=== PATIENT | male | born 1940 | race Caucasian/White ===

== ENCOUNTER 2021-06-07 11:56 | Emergency (ER) | payer MEDICARE ==
[~2021-06-07] VITALS: Ht 172.7 cm; Wt 72.0 kg
--- NOTE | 2021-06-07 12:02 | PHYS DOC ---
General Adult EDM: Chief Complaint: CHEST PAIN HPI: HPI: Patient is a 80-year-old male coming in for lightheadedness and chest pain starting about 1-1.5 hours prior to arrival. Patient states he was just finishing up the shower when the symptoms started. His he has minor right-sided chest pain. Had similar symptoms a few weeks ago. Patient denies any prior cardiac history. Patient says he might have been diaphoretic is not anymore. He states that he has a procedure planned at tomorrow. Denies any medical history other than "my stomach is bad" and 'my bowels are bad" has had both of those [place] vaccine (KRISTI PERSAUD MD) HPI: Patient comes into the ED complaining of lightheadedness upon standing for about 3 weeks but worse today, had been seen by the daytime physician earlier did complain of some chest pain at that point but denies it at this time to me. Denies any fever, chills, no blurred vision or vision loss, no focal numbness weakness/tingling face, arms or legs. No loss of bowel or bladder control, no k nown history of cardiac disease, no known history of strokes or thromboembolism (FRANCOIS MCGEE MD) Review of Systems: Review of Systems: All other systems within normal limits except for as noted in the HPI (KRISTI PERSAUD MD) Review of Systems: General: no fevers , no chills, no general weakness Eyes: no blurred vision, no diplopia Skin: no rashes Neck: no swelling, no neck stiffness, no neck pain Heme: no bleeding, no lymph node enlargement Ear/Nose/Throat: No sore throat, no runny nose, no hearing loss, no difficulty swallowing Cardiovascular: + Chest pain, no palpitations Respiratory: No dyspnea, no cough, no hemoptysis Gastrointestinal: No abdominal pain, no nausea, no vomiting, no diarrhea, no blood in stool Genitourinary: no dysuria, no hematuria Musculoskeletal: no back pain, no leg pain, no arm pain, no arthralgia Neurologic: no headaches, no dizziness, no focal numbness/tingling, no focal weakness Psych: no depression, no anxiety, no SI/HI *All review of systems are negative other than what is noted above (FRANCOIS MCGEE MD) Physical Exam: PE: Constitutional: Well developed, well nourished, no acute distress, non-toxic appearance. [] HENT: Normocephalic, atraumatic, bilateral external ears normal, nose normal. [] Eyes: PERRLA, conjunctiva normal, no discharge. [] Neck: No rigidity, supple, no stridor. [] Cardiovascular: Regular rate and rhythm, brisk cap refill [] Lungs & Thorax: Non labored symmetric respirations, no tachypnea or respiratory distress [] Abdomen: Soft, nondistended. Skin: Warm, dry, no erythema, no rash. [] Back: Unremarkable Extremities: No deformities, range of motion grossly intact, no lower extremity edema [] Neurologic: Alert and oriented X 3, no focal deficits noted. [] Psychologic: Affect normal, judgement normal, mood normal. [] (KRISTI PERSAUD MD) PE: Gen-well appearing, no acute distress Head: Normocephalic/Atraumatic ENT: atraumatic, PERRLA, EOMI, oropharynx clear Neck: supple, full ROM/strength, no JVD, no nuchal rigidity Lungs: no distress, speaks in full sentences, Clear to auscultation bilaterally CV: reg rate, rhythm, no murmus/rubs/gallops, peripheral pulses equal in all extremities Abdomen: soft/nontender, no guarding/rebound tenderness, no rigidity, non distended, normoactive bowel sounds Musculoskeletal: full ROM/strength in all extremities, atraumatic, no swelling Back: full range of motion/strength Skin: intact, no rashes Lymph: no gross CAROLE Neuro: alert and oriented x 4, CN 2-12 grossly intact, Motor strength is 5/5 in all extremities, no focal sensory deficits, no focal ataxia, ambulatory with steady gait Psych: normal mood/affect (FRANCOIS MCGEE MD) EKG: EKG: Sinus rhythm, heart rate 74 beats minute, left axis deviation, no ST elevation or depression, no ectopy. [] (KRISTI PERSAUD MD) EKG: Twelve-lead EKG was done on arrival and is normal sinus rhythm at a rate of 87 and this is a nonischemic appearing EKG with otherwise normal axis and intervals (FRANCOIS MCGEE MD) Radiology/Procedures: Radiology/Procedures: [place] [address] IMAGING REPORT Signed PATIENT: JARAD NUNN V ACCOUNT: [id number] : 1940 LOCATION: ER AGE: 80 SEX: M EXAM STATUS: REG ER ORD. PHYSICIAN: KRISTI PERSAUD MD REASON: chest pain, right PROCEDURE: CHEST PA & LATERAL XR CHEST 2V History: Chest pain, right. Comparison: 04/02/2014 Technique: PA and lateral chest radiographs. Findings: The lungs are adequately and symmectrically inflated. No airspace consolidation, pleural effusion or pneumothorax. The cardiomediastinal silhoutte and pulmonary vasculature are within normal limits. Flowing osteophytes in the thoracic spine. Impression: 1. No acute cardiopulmonary process. Electronically signed by: Francois Maradiaga MD (06/07/2021 3:06 PM) [id number] DICTATED AND SIGNED BY: FRANCOIS MARADIAGA MD DATE: 06/07/21 150 CC: KRISTI PERSAUD MD; MALOU RANDLE MD ~MTH0 0 [][address] [address] IMAGING REPORT Signed PATIENT: JARAD NUNN V ACCOUNT: [id number] : 1940 LOCATION: ER AGE: 80 SEX: M EXAM STATUS: REG ER ORD. PHYSICIAN: KRISTI PERSAUD MD REASON: near syncope PROCEDURE: CT HEAD WO CONTRAST EXAM: Head CT without contrast. HISTORY: Near syncope. TECHNIQUE: Computed tomographic images of the head were obtained without contrast. *One or more of the following individualized dose reduction techniques were utilized for this examination: 1. Automated exposure control. 2. Adjustment of the mA and/or kV according to patient size. 3. Use of iterative reconstruction technique. COMPARISON: None. FINDINGS: There is no acute or subacute extra-axial or intraparenchymal hemorrhage. There is no mass effect or midline shift. There is no hydrocephalus. There are areas of decreased attenuation within the cerebral white matter, nonspecific and likely related to chronic small vessel disease. There is mild cerebral volume loss. The visualized portions of the orbits, paranasal sinuses and mastoid air cells are unremarkable. No suspicious calvarial lesion is seen. There is benign osseous excrescence along the inner table of the left frontal bone. This exerts no mass effect on the adjacent brain parenchyma. IMPRESSION: 1. No acute intracranial finding. Note is made that MRI is more sensitive for acute infarction. 2. Bilateral cerebral white matter changes, likely due to chronic small vessel disease. Electronically signed by: Sheree Dudley MD (06/07/2021 4:29 PM) [id number] DICTATED AND SIGNED BY: SHEREE DUDLEY MD DATE: 06/07/21 1623 CC: KRISTI PERSAUD MD; MALOU RANDLE MD ~MTH0 0 (KRISTI PERSAUD MD) Heart Score: C/O Chest Pain: Yes HEART Score for Chest Pain: HEART Score for Chest Pain Response (Comments) Value History Slighlty/Non-Suspicious 0 ECG Normal 0 Age > 65 2 Risk Factors No Risk Factors 0 Troponin < Normal Limit 0 Total 2 Risk Factors: Risk Factors: DM, Current or recent (<one month) smoker, HTN, HLP, family history of CAD, obesity. Risk Scores: Score 0 - 3: 2.5% MACE over next 6 weeks - Discharge Home Score 4 - 6: 20.3% MACE over next 6 weeks - Admit for Clinical Observation Score 7 - 10: 72.7% MACE over next 6 weeks - Early Invasive Strategies (KRISTI PERSAUD MD) C/O Chest Pain: No (FRANCOIS MCGEE MD) Course & Med Decision Making: Course & Med Decision Making Pending remaining fluids and reevaluation at shift change. (KRISTI PERSAUD MD) Course & Med Decision Making 80-year-old male presented to the emergency department complaining initially of some lightheadedness/dizziness upon standing, patient is neurologically intact, no focal findings, pertinent differential diagnosis includes but not limited to dehydration, orthostasis, electrolyte imbalance, unlikely stroke, ACS, PE, dissection, unlikely any intracranial infections, plan is to get a work-up in the patient includes orthostatic vital signs, labs including cardiac biomarkers, chest x-ray, will hydrate the patient, will then reevaluate exam room in the visit work-up and determine the best course of action is a data becomes available 846pm: Head CT was negative, he was given a liter of IV fluid, he says that his symptoms now resolved completely, he is ambulatory steady gait and remains neurologically intact, I did offer the patient admission given his nonspecific symptoms although he declined and wished to go home although I did advise him to be admitted, in lieu of him being admitted I advised him to follow with his primary care doctor in the next 24 hours Patient was seen in the ED for lightheadedness/dizziness that improved in the emergency department and he is now asymptomatic, there is no apparent evidence of any emergency medical pathology at this time, patient was advised follow-up with their primary care provider /physician in the next 24 hours, and to return to the ED before then if any new or worsening / concerning symptoms had developed. All questions and concerns were addressed at time of disposition (FRANCOIS MCGEE MD) Dragon Disclaimer: Dragon Disclaimer: This electronic medical record was generated, in whole or in part, using a voice recognition dictation system. (KRISTI PERSAUD MD) Departure Departure: Impression: Primary Impression: Dizziness Disposition: 01 HOME / SELF CARE / HOMELESS Condition: IMPROVED Referrals: MALOU RANDLE MD (PCP) 24 hrs Patient Instructions: Dizziness Additional Instructions: I recommend that you see your primary care doctor in the next 24 hours, please return to the nearest emergency room before that if any new or worsening/concerning symptoms develop KRISTI PERSAUD MD Jun 07, 2021 12:02 FRANCOIS MCGEE MD Jun 07, 2021 20:47
[2021-06-07 12:41] LABS: BASO % 0 % (0-3); EOS % 0 % (0-3); HEMATOCRIT 46.8 % (39.0-53.0); HEMOGLOBIN 15.8 g/dL (13.0-17.5); LYMPH # 0.7 x10^3/uL (1.0-4.8); LYMPH % 14 % (24-48); MEAN CORPUSCULAR HEMOGLOBIN 31 pg (25-35); MEAN CORPUSCULAR HGB CONC 34 g/dL (31-37); MEAN CORPUSCULAR VOLUME 92 fL (79-100); MONO # 0.4 x10^3/uL (0.0-1.1); MONO % 8 % (0-9); NEUT # 3.9 x10^3uL (1.8-7.7); NEUT % 78 % (31-73); PLATELET COUNT 131 x10^3/uL (140-400); RED BLOOD COUNT 5.08 x10^6/uL (4.30-5.70); RED CELL DISTRIBUTION WIDTH 13.5 % (11.5-14.5)
[2021-06-07 12:48] LABS: CALCIUM 8.6 mg/dL (8.5-10.1); CREATININE 0.9 mg/dL (0.7-1.3); GFR 81.6; POTASSIUM 3.9 mmol/L (3.5-5.1)
[2021-06-07 13:02] LABS: ALBUMIN 3.7 g/dL (3.4-5.0); ALBUMIN/GLOBULIN RATIO 1.4 (1.0-1.7); PHOSPHORUS 2.8 mg/dL (2.6-4.7); TOTAL BILIRUBIN 0.8 mg/dL (0.2-1.0); TOTAL PROTEIN 6.3 g/dL (6.4-8.2)
--- NOTE | 2021-06-07 13:58 | EKG ---
[address] [address] Test Date: 2021-06-07 Test Time: 11:56:00 Pat Name: JARAD NUNN Department: Room: Gender: M [employer]: MURTAZA : 1940 Requested By: KRISTI PERSAUD Order Number: [id number] Reading MD: Measurements Intervals [place] Rate: 74 P: 48 [place]: 176 QRS: 0 QRSD: 92 T: 36 QT: 374 QTc: 416 Interpretive Statements SINUS RHYTHM LEFTWARD AXIS NO SPECIFIC ECG ABNORMALITIES RI6.02 No previous ECG available for comparison
--- NOTE | 2021-06-07 15:09 | RAD ---
XR CHEST 2V History: Chest pain, right. Comparison: 04/02/2014 Technique: PA and lateral chest radiographs. Findings: The lungs are adequately and symmectrically inflated. No airspace consolidation, pleural effusion or pneumothorax. The cardiomediastinal silhoutte and pulmonary vasculature are within normal limits. Brandon wing osteophytes in the thoracic spine. Impression: 1. No acute cardiopulmonary process. Electronically signed by: Francois Berg MD (06/07/2021 3:06 PM) [id number]
[2021-06-07] MEDS ORDERED: IV NORMAL SALINE 1,000ML 1,000 ML IV ONE ×2 (16:15→17:15)
--- NOTE | 2021-06-07 16:31 | RAD ---
EXAM: Head CT without contrast. HISTORY: Near syncope. TECHNIQUE: Computed tomographic images of the head were obtained without contrast. *One or more of the following individualized dose reduction techniques were utilized for this examina tion: 1. Automated exposure control. 2. Adjustment of the mA and/or kV according to patient size. 3. Use of iterative reconstruction technique. COMPARISON: None. FINDINGS: There is no acute or subacute extra-axial or intraparenchymal hemorrhage. There is no mass effect or midline shift. There is no hydrocephalus. There are areas of decreased attenuation within the cerebral white matter, nonspecific and likely rel ated to chronic small vessel disease. There is mild cerebral volume loss. The visualized portions of the orbits, paranasal sinuses and mastoid air cells are unremarkable. No s uspicious calvarial lesion is seen. There is benign osseous excrescence along the inner table of the left frontal bone. This exerts no mass effect on the adjacent brain parenchyma. IMPRESSION: 1. No acute intracranial finding. Note is made that MRI is more sensitive for acute infarction. 2. Bilateral cerebral white matter changes, likely due to chronic small vessel disease. Electronically signed by: Sheree Grewal MD (06/07/2021 4:29 PM) [id number]
[2021-06-07 20:28] VITALS: BP 148/83
== END 2021-06-07 21:10 | disposition home or self-care (01) ==
LOC: ER 11:56
DX: R42 Dizziness and giddiness (principal); R07.89 Other chest pain
CPT/HCPCS: 36415; 70450; 71046; 80053; 83735; 83880; 84100; 84484; 85025; 85379; 93005; 96360; 96361; 99285; J7030

== ENCOUNTER 2021-06-20 10:41 | Emergency (ER) | payer MEDICARE ==
[~2021-06-20] VITALS: Ht 172.7 cm; Wt 72.0 kg
[2021-06-20] MEDS ORDERED: IV NORMAL SALINE 1,000ML 1,000 ML IV ONE (10:45)
[2021-06-20 11:28] LABS: BASO % 0 % (0-3); EOS # 0.1 x10^3/uL (0.0-0.7); EOS % 1 % (0-3); HEMOGLOBIN 15.7 g/dL (13.0-17.5); LYMPH % 17 % (24-48); MEAN CORPUSCULAR HEMOGLOBIN 32 pg (25-35); MEAN CORPUSCULAR HGB CONC 34 g/dL (31-37); MEAN CORPUSCULAR VOLUME 93 fL (79-100); MONO # 0.5 x10^3/uL (0.0-1.1); MONO % 9 % (0-9); NEUT # 4.2 x10^3uL (1.8-7.7); NEUT % 73 % (31-73); PLATELET COUNT 130 x10^3/uL (140-400); RED BLOOD COUNT 4.97 x10^6/uL (4.30-5.70); RED CELL DISTRIBUTION WIDTH 14.1 % (11.5-14.5); WHITE BLOOD COUNT 5.8 x10^3/uL (4.0-11.0)
[2021-06-20] MEDS ORDERED: KETOROLAC 15 MG/ML VIAL. IVP ONE (11:30)
[2021-06-20 11:36] LABS: CALCIUM 8.8 mg/dL (8.5-10.1); CREATININE 0.7 mg/dL (0.7-1.3); GFR 109.1; POTASSIUM 3.7 mmol/L (3.5-5.1)
[2021-06-20 11:42] LABS: ALBUMIN 3.7 g/dL (3.4-5.0); ALBUMIN/GLOBULIN RATIO 1.2 (1.0-1.7); TOTAL BILIRUBIN 0.6 mg/dL (0.2-1.0); TOTAL PROTEIN 6.8 g/dL (6.4-8.2)
[2021-06-20 11:46] LABS: BACTERIA,URINE 0 /HPF (0-FEW); BILIRUBIN,URINE NEG (NEG); CLARITY,URINE CLEAR; COLOR,URINE YELLOW; GLUCOSE,URINE NEG (NEG); NITRITE,URINE NEG (NEG); UROBILINOGEN,URINE 0.2 mg/dL (0.2 mg/dL)
--- NOTE | 2021-06-20 12:11 | RAD ---
EXAM: AP View of the chest DATE: 06/20/2021 11:23 AM INDICATION: Reason: DIZZINESS / Spl. Instructions: / History: COMPARISON: No Prior FINDINGS: The heart is not enlarged. Aortic calcifications are seen. Calcified granuloma are seen bilaterally. No focal parenchymal airspace opacity. No pleural effusion or pneumothorax. IMPRESSION: 1. No radiographic evidence for acute cardiopulmonary process. Electronically signed by: Martin Jones MD (06/20/2021 12:09 PM) [id number]
--- NOTE | 2021-06-20 12:18 | EKG ---
[address] [address] Test Date: 2021-06-20 Test Time: 11:56:35 Pat Name: JARAD NUNN Department: Room: Gender: M [employer] Hel[employer]: : 1940 Requested By: LISA MATHEW Order Number: [id number] Reading MD: Measurements Intervals [place] Rate: 69 P: 50 [place]: 166 QRS: 0 QRSD: 98 T: 14 QT: 398 QTc: 428 Interpretive Statements SINUS RHYTHM LEFTWARD AXIS NO SPECIFIC ECG ABNORMALITIES RI6.02 No previous ECG available for comparison
--- NOTE | 2021-06-20 12:38 | PHYS DOC ---
Past History Past Surgical History: Other Additional Past Surgical Histo: SEE ABOVE (LISA MATHEW APRN) Alcohol Use: Sober (LISA MATHEW APRN) General Adult EDM: Chief Complaint: DIZZY/LIGHT HEADED HPI: HPI: Patient is a 80-year-old male who presents with right-sided chest pressure started about 930. Patient states that he walked to his mailbox and back when the pain started. Patient states he got sweaty and clammy and had a dull, pressure to the right side of my chest. Patient denies nausea or vomiting. Denies radiation of pain. Denies shortness of breath. Patient is rating the pain a 2/10. Patient states "this happened to me 2 weeks ago also and I came into the emergency room to be seen". "They told me that I was dehydrated". Denies cardiac history. Patient is also reporting right wrist pain. Patient denies injury but is tender to the touch. Patient reports using lidocaine on his wrist with little relief. (LISA MATHEW APRN) Review of Systems: Review of Systems: Constitutional: Denies fever or chills Eyes: Denies change in visual acuity HENT: Denies nasal congestion or sore throat Respiratory: Denies cough or shortness of breath Cardiovascular: Denies chest pain or edema GI: Denies abdominal pain, nausea, vomiting, bloody stools or diarrhea : Denies dysuria Musculoskeletal: Denies back pain or joint pain Integument: Denies rash Neurologic: Denies headache, focal weakness or sensory changes Endocrine: Denies polyuria or polydipsia Lymphatic: Denies swollen glands Psychiatric: Denies depression or anxiety (LISA MATHEW APRN) Current Medications: Current Meds: Current Medications Medications (Trade) Dose Ordered Sig/Darcie Start Time Stop Time Status Last Admin Dose Admin Ketorolac Tromethamine (Toradol 15mg Vial) 15 mg 1X ONCE 06/20/21 11:30 06/20/21 11:31 DC 06/20/21 11:45 15 MG Sodium Chloride 1,000 ml @ 1,000 mls/hr 1X ONCE 06/20/21 10:45 06/20/21 11:44 DC 06/20/21 11:15 1,000 MLS/HR (LISA MATHEW APRN) Allergies: Allergies: Allergies Coded Allergies Type Severity Reaction Last Updated Verified Sulfa (Sulfonamide Antibiotics) Allergy Unknown 06/07/21 Yes (LISA MATHEW APRN) Physical Exam: PE: Constitutional: Well developed, well nourished, no acute distress, non-toxic appearance. [] HENT: Normocephalic, atraumatic, bilateral external ears normal, oropharynx moist, no oral exudates, nose normal. [] Eyes: PERRLA, EOMI, conjunctiva normal, no discharge. [] Neck: Normal range of motion, no tenderness, supple, no stridor. [] Cardiovascular:Heart rate regular rhythm, no murmur [] Lungs & Thorax: Bilateral breath sounds clear to auscultation [] Abdomen: Bowel sounds normal, soft, no tenderness, no masses, no pulsatile masses. [] Skin: Warm, dry, no erythema, no rash. [] Back: No tenderness, no CVA tenderness. [] Extremities: No tenderness, no cyanosis, no clubbing, ROM intact, no edema. [] Neurologic: Alert and oriented X 3, normal motor function, normal sensory function, no focal deficits noted. [] Psychologic: Affect normal, judgement normal, mood normal. 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) Current Patient Data: Labs: Laboratory Tests Test 06/20/21 11:08 06/20/21 11:20 06/20/21 11:48 White Blood Count 5.8 x10^3/uL (4.0-11.0) Red Blood Count 4.97 x10^6/uL (4.30-5.70) Hemoglobin 15.7 g/dL (13.0-17.5) Hematocrit 46.0 % (39.0-53.0) Mean Corpuscular Volume 93 fL (79-100) Mean Corpuscular Hemoglobin 32 pg (25-35) Mean Corpuscular Hemoglobin Concent 34 g/dL (31-37) Red Cell Distribution Width 14.1 % (11.5-14.5) Platelet Count 130 x10^3/uL (140-400) L Neutrophils (%) (Auto) 73 % (31-73) Lymphocytes (%) (Auto) 17 % (24-48) L Monocytes (%) (Auto) 9 % (0-9) Eosinophils (%) (Auto) 1 % (0-3) Basophils (%) (Auto) 0 % (0-3) Neutrophils # (Auto) 4.2 x10^3uL (1.8-7.7) Lymphocytes # (Auto) 1.0 x10^3/uL (1.0-4.8) Monocytes # (Auto) 0.5 x10^3/uL (0.0-1.1) Eosinophils # (Auto) 0.1 x10^3/uL (0.0-0.7) Basophils # (Auto) 0.0 x10^3/uL (0.0-0.2) Sodium Level 142 mmol/L (136-145) Potassium Level 3.7 mmol/L (3.5-5.1) Chloride Level 105 mmol/L (98-107) Carbon Dioxide Level 27 mmol/L (21-32) Anion Gap 10 (6-14) Blood Urea Nitrogen 15 mg/dL (8-26) Creatinine 0.7 mg/dL (0.7-1.3) Estimated GFR (Cockcroft-Gault) 109.1 BUN/Creatinine Ratio 21 (6-20) H Glucose Level 112 mg/dL (70-99) H Calcium Level 8.8 mg/dL (8.5-10.1) Total Bilirubin 0.6 mg/dL (0.2-1.0) Aspartate Amino Transferase (AST) 18 U/L (15-37) Alanine Aminotransferase (ALT) 32 U/L (16-63) Alkaline Phosphatase 76 U/L (46-116) Troponin I Quantitative < 0.017 ng/mL (0-0.055) Total Protein 6.8 g/dL (6.4-8.2) Albumin 3.7 g/dL (3.4-5.0) Albumin/Globulin Ratio 1.2 (1.0-1.7) Urine Collection Type Unknown Urine Color Yellow Urine Clarity Clear Urine pH 5.5 Urine Specific [place] 1.025 Urine Protein Trace (NEG-TRACE) Urine Glucose (UA) Neg mg/dL (NEG) Urine Ketones (Stick) Neg mg/dL (NEG) Urine Blood Trace (NEG) Urine Nitrite Neg (NEG) Urine Bilirubin Neg (NEG) Urine Urobilinogen Dipstick 0.2 mg/dL (0.2 mg/dL) Urine Leukocyte Esterase Neg (NEG) Urine RBC 11-20 /HPF (0-2) Urine WBC 1-4 /HPF (0-4) Urine Squamous Epithelial Cells None /LPF Urine Bacteria 0 /HPF (0-FEW) Urine Mucus Mod /LPF Glucose (Fingerstick) 88 mg/dL (70-99) Vital Signs: Vital Signs Date Time Temp Pulse Resp B/P (MAP) Pulse Ox O2 Delivery O2 Flow Rate FiO2 06/20/21 10:45 98.5 66 20 151/84 98 Room Air (LISA MATHEW APRN) EKG: EKG: [] (LISA MATHEW APRN) Radiology/Procedures: Radiology/Procedures: []XR RT WRIST 3VIEWS Clinical indications: Reason: WORSENING WRIST PAIN, NO KNOWN INJURY Findings: There is a nonunited fracture of the mid waist of the scaphoid bone. 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 No lytic process is seen. IMPRESSION: Nonunited fracture of the mid waist of the scaphoid bone. Electronically signed by: Celestine Ribeiro MD (06/20/2021 12:57 PM) [id number] (LISA MATHEW APRN) Heart Score: C/O Chest Pain: Yes HEART Score for Chest Pain: HEART Score for Chest Pain Response (Comments) Value History Moderately Suspicious 1 ECG Normal 0 Age > 65 2 Risk Factors 1 or 2 Risk Factors 1 Troponin < Normal Limit 0 Total 4 Risk Factors: Risk Factors: DM, Current or recent (<one month) smoker, HTN, HLP, family history of CAD, obesity. Risk Scores: Score 0 - 3: 2.5% MACE over next 6 weeks - Discharge Home Score 4 - 6: 20.3% MACE over next 6 weeks - Admit for Clinical Observation Score 7 - 10: 72.7% MACE over next 6 weeks - Early Invasive Strategies (LISA MATHEW APRN) Course & Med Decision Making: Course & Med Decision Making Pertinent Labs and Imaging studies reviewed. (See chart for details) [] 80-year-old male presents with right-sided chest pressure that started at 930 this morning after walking 80 yards to his mailbox. Patient states he returned and became hot and clammy. Patient is rating pain 2/10. Patient denies nausea or vomiting. Patient reports he had similar symptoms 2 weeks ago and was seen in the emergency room and discharged with a diagnosis of dehydration. Patient is also reporting he has right wrist pain. Unknown injury. But painful to the touch. Patient given Toradol for discomfort. EKG shows sinus rhythm. Heart rate 69 bpm. Chest x-ray is unremarkable. All labs unremarkable. First troponin is negative. X-ray of right wrist shows nonunited fracture of the mid waist of the scaphoid bone. Thumb spica splint placed and instructed patient to call orthopedics to make a follow-up appointment. Second troponin negative. Patient's pain is improved. Patient directed to follow-up with his PCP tomorrow and make an appointment with Ortho. Patient states that he understands discharge instructions. Patient is hemodynamically stable and agrees with discharge plan. (LISA MATHEW APRN) Course & Med Decision Making I oversaw on the above date of service of this patient. This patient was evaluated, examined, treated, and dispositioned from the emergency department by the mid-level practitioner. Although I was working at the time , no assistance was requested. Electronically signed, Evaristo Gaytan DO (EVARISTO GAYTAN DO) Sarah Disclaimer: Sarah Disclaimer: This electronic medical record was generated, in whole or in part, using a voice recognition dictation system. (LISA MATHEW APRN) Departure Departure: Impression: Primary Impression: Fracture of scaphoid bone of right wrist Qualified Codes: S62.001A - Unspecified fracture of navicular [scaphoid] bone of right wrist, initial encounter for closed fracture Additional Impression: Pressure in right side of chest Disposition: 01 HOME / SELF CARE / HOMELESS Condition: STABLE Referrals: MALOU RANDLE MD (PCP) Patient Instructions: Scaphoid Fracture, Wrist Additional Instructions: You are seen in the emergency room for chest pain and also right wrist pain. All of your labs were unremarkable. Your troponin level was negative. Your chest x-ray was also unremarkable. We did an x-ray of your right wrist which showed a fracture of your scaphoid bone. We placed a thumb spica. I am giving you the information to follow-up with orthopedics. Please call them today to make a follow-up appointment. You can take ibuprofen and Tylenol at home for discomfort. I am also in a send you home with some pain medication to take intake and follow-up with orthopedic. Please call your PCP and make an appointment to follow-up with him as well. You may need to see cardiology. Please return to the emergency room if you have worsening symptoms or concerns. ORTHO [phone] EMERGENCY DEPARTMENT GENERAL DISCHARGE INSTRUCTIONS Thank you for coming to [facility] (ED) today and trusting us with you care. We trust that you had a positivie experience in our Emergency Department. If you wish to speak to the department management, you may call the director at [phone]. YOUR FOLLOW UP INSTRUCTIONS ARE FOLLOWS: 1. Do you have a private Doctor? If you do not have a private doctor, please ask for a resource list of physicians or clinics that may be able to assist you with follow up care. 2. The Emergency Physician has interpreted your x-rays. The X-Ray specialist will also review them. If there is a change in the findings, you will be notified in 48 hours when at all possible. 3. A lab test or culture has been done, your results will be reviewed and you will be notified if you need a change in treatment. ADDITIONAL INSTRUCTIONS AND INFORMATION: 1. Your care today has been supervised by a physician who is specially trained in emergency care. Many problems require more than one evaluation for a complete diagnosis and treatment. We recommend that you schedule your follow up appointment as recommended to ensure complete treatment of you illness or injury. If you are unable to obtain follow up care and continue to have a problem, or if your condition worsens, we recommend that you return to the ED. 2. We are not able to safely determine your condition over the phone nor are we able to give sound medical advice over the phone. For these safety reasons, if you call for medical advice we will ask you to come to the ED for further evaluation. 3. If you have any questions regarding these discharge instructions please call the ED at [phone]. SAFETY INFORMATION: In the interest of safety, wellness, and injury prevention; we encourage you to wear your sealbelt, if you smoke; quite smoking, and we encourage family to use a protective helmet for bicycling and other sporting events that present an increased risk for head injury. IF YOUR SYMPTOMS WORSEN OR NEW SYMPTOMS DEVELOP, OR YOU HAVE CONCERNS ABOUT YOUR CONDITION; OR IF YOUR CONDITION WORSENS WHILE YOU ARE WAITING FOR YOUR FOLLOW UP APPOINTMENT; EITHER CONTACT YOUR PRIMARY CARE DOCTOR, THE PHYSICIAN WHOSE NAME AND NUMBER YOU WERE GIVEN, OR RETURN TO THE ED IMMEDIATELY. Scripts Hydrocodone Bit/Acetaminophen (HYDROCODONE-APAP 5-325 ) 1 Each Tablet 1-2 TAB PO PRN Q6HRS PRN for PAIN for 3 Days, #12 TAB 0 Refills Prov: LISA MATHEW APRN 06/20/21 LISA MATHEW APRN Jun 20, 2021 12:38 EVARISTO GAYTAN DO Jun 21, 2021 06:46
--- NOTE | 2021-06-20 13:00 | RAD ---
XR RT WRIST 3VIEWS Clinical indications: Reason: WORSENING WRIST PAIN, NO KNOWN INJURY Findings: There is a nonunited fracture of the mid waist of the scaphoid bone. 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 No lytic process is seen. IMPRESSION: Nonunited fracture of the mid waist of the scaphoid bone. Electronically signed by: Celestine Ribeiro MD (06/20/2021 12:57 PM) [id number]
[2021-06-20] MEDS ORDERED: HYDR-2155 PO (13:20)
[2021-06-20 15:08] VITALS: BP 155/83
== END 2021-06-20 15:45 | disposition home or self-care (01) ==
LOC: ER 10:41
DX: S92.251A Displaced fracture of navicular [scaphoid] of right foot, initial encounter for closed fracture (principal); R07.89 Other chest pain; Z88.2 Allergy status to sulfonamides; X58.XXXA Exposure to other specified factors, initial encounter; Y93.01 Activity, walking, marching and hiking; Y92.89 Other specified places as the place of occurrence of the external cause; Y99.8 Other external cause status
CPT/HCPCS: 36415; 71045; 73110; 80053; 81001; 82947; 84484; 85025; 93005; 96361; 96374; 99285; J1885; J7030